=== PATIENT | male | born 1995 | race Caucasian/White ===

== ENCOUNTER 2018-05-23 12:22 | Emergency (ER) | payer OTHER ==
[~2018-05-23] VITALS: Ht 188 cm; Wt 98.5 kg
[2018-05-23] MEDS ORDERED: KETOROLAC 30 MG/1 ML ONE (13:01)
[2018-05-23] MEDS ORDERED: DIAZEPAM 5 MG TABLET ONE (13:01)
[2018-05-23] MEDS ORDERED: KETOROLAC 30 MG/1 ML IM ONE (13:30)
[2018-05-23] MEDS ORDERED: DIAZEPAM 5 MG TABLET PO ONE (13:30)
[2018-05-23 14:21] VITALS: BP 137/43
== END 2018-05-23 14:23 ==
LOC: ED 14:10
DX: S39.012A Strain of muscle, fascia and tendon of lower back, initial encounter (principal); X58.XXXA Exposure to other specified factors, initial encounter; Y93.89 Activity, other specified; Y92.89 Other specified places as the place of occurrence of the external cause; Y99.8 Other external cause status
CPT/HCPCS: 72110; 96372; 99284; J1885